=== PATIENT | female | born 2000 | race Caucasian/White ===

== ENCOUNTER 2023-03-31 00:41 | Emergency (ER) | payer MEDICAID ==
[2023-03-31 01:03] VITALS: TEMP 99
[2023-03-31] MEDS ORDERED: PROVENTIL 2.5 MG/3 ML NEB IH ONE ×2 (01:16→01:33)
[2023-03-31] MEDS ORDERED: Pepcid 20 MG VIAL IV ONE ×2 (01:16→01:19)
[2023-03-31] MEDS ORDERED: Sodium Chloride 0.9% 1000 ML 1,000 ML IV STA (01:16)
[2023-03-31] MEDS ORDERED: solu-MEDROL 125 MG, Sterile H2O 10 ml 2 ML IV ONE ×2 (01:16)
[2023-03-31] MEDS ORDERED: BENADRYL 50 MG/ML IV ONE (01:16)
--- NOTE | 2023-03-31 01:16 | ERPHSYRPT ---
- History of Present Illness Time Seen by Provider: 03/31/23 01:05 Source: patient Exam Limitations: no limitations Patient Subjective Stated Complaint: pt states she ate salmon (not the first time having) at approx 2000 and very soon after eating she started itching all o catrina and experienced swelling to face and eyes. at that times she reports it was difficult to breath (no longer complains of this) and she felt wheezy (no longer complains of this). Triage Nursing Assessment: pt ambulated to room 5 indpendently with slow steady gait after standing on scale for weight acquisition. pt is alert and oriented times three, able to speak in complete sentences, able to move all extremities, and with resp even and unlabored. skin warm, pink, dry, and intact with flushed skin on face, neck, and upper torso. several small patches of red with small hives noted to generalized body. lung sounds clear and diminished bilat, swelling to face and eyes noted. no swelling visible to mouth, lips, throat, tongue. states that she has a little bit of a sore throat but denies sob or difficulty with breathing at this time. no cough noted. Physician History: Patient ate salmon and lobster macaroni 5 hours prior to come the emergency room and began having itching all over and swelling to her face. She did have some difficulty breathing and wheezing that have resolved by time she came in. She did take 100 mg of Benadryl which has helped approximately an hour and 45 minutes prior to coming into the emergency department. Patient's grandmother told her that she may have had a mild allergic reaction to salmon in the past. Timing/Duration: hour(s) (5), improved Severity: moderate Modifying Factors: Improves With: medication (Benadryl) Associated Symptoms: shortness of breath, No nausea, No vomiting, No abdominal pain, No heartburn, No diaphoresis, No cough, No chills, No chest pain, No fever, No headaches, No loss of appetite, No malaise, No rash, No syncope, No seizure, No weakness Allergies/Adverse Reactions: No Known Drug Allergies Allergy (Verified 03/31/23 00:46) Home Medications: Drospir/Eth Estra/Levomefol Ca [[id number] 3-0.02-0.451] 1 tab PO DAILY 03/31/23 [History] Hx Tetanus, Diphtheria Vaccination/Date Given: (unknown) Hx Influenza Vaccination/Date Given: No Hx Pneumococcal Vaccination/Date Given: No Immunizations Up to Date: No Travel Risk - International Travel Have you traveled outside of the country in past 3 weeks: No - Coronavirus Screening Are you exhibiting any of the following symptoms?: No Close contact with a COVID-19 positive Pt in past 14-21 Days: No - Vaccine Status Have you recieved a Covid-19 vaccination: Yes Entry Level Account Representative: Unknown - Vaccination Dates Dates if Unknown: unknown - Review of Systems Constitutional: No Fever, No Chills, No Malaise Eyes: No Symptoms, No Eye Pain, No Eye Redness Ears, Nose, & Throat: No Symptoms, Other (itchy throat), No Nose Congestion, No Mouth Swelling, No Throat Pain, No Throat Swelling, No Painful Swallowing Respiratory: Dyspnea (Resolved now), Wheezing (Improved), No Cough Cardiac: No Chest Pain, No Edema, No Syncope Abdominal/Gastrointestinal: No Abdominal Pain, No Nausea, No Vomiting, No Diarrhea Genitourinary Symptoms: No Dysuria, No Hematuria, No Flank Pain Musculoskeletal: No Back Pain, No Neck Pain Skin: No Rash Neurological: No Dizziness, No Focal Weakness, No Sensory Changes Psychological: No Symptoms Endocrine: No Symptoms Hematologic/Lymphatic: No Easy Bleeding, No Easy Bruising All Other Systems: Reviewed and Negative - Past Medical History Pertinent Past Medical History: Yes Neurological History: No Pertinent History ENT History: No Pertinent History Cardiac History: No Pertinent History Respiratory History: No Pertinent History Endocrine Medical History: No Pertinent History Musculoskeletal History: No Pertinent History GI Medical History: No Pertinent History History: No Pertinent History Psycho-Social History: Depression Female Reproductive Disorders: No Pertinent History - Past Surgical History Past Surgical History: Yes Neuro Surgical History: No Pertinent History Cardiac: No Pertinent History Respiratory: No Pertinent History Gastrointestinal: No Pertinent History Genitourinary: No Pertinent History Musculoskeletal: Other Female Surgical History: No Pertinent History Other Surgical History: torn muscle repair - Social History Smoking Status: Former smoker Exposure to second hand smoke: No Drug Use: none Patient Lives Alone: Yes - Female History Hx Last Menstrual Period: 03/10/23 Hx Now: No - Nursing Vital Signs Nursing Vital Signs: Initial Vital Signs Pulse Rate 74 03/31/23 00:46 Respiratory Rate 16 03/31/23 00:46 Blood Pressure 144/86 03/31/23 00:46 O2 Sat by Pulse Oximetry 96 03/31/23 00:46 Pain Scale Pain Intensity 0 - Physical Exam General Appearance: no apparent distress, alert Eye Exam: PERRL/EOMI, eyes nml inspection, No scleral icterus, No pale conjunctivae Ears, Nose, Throat Exam: normal ENT inspection, TMs normal, pharynx normal, moist mucous membranes Neck Exam: normal inspection, non-tender, supple, full range of motion, No meningismus, No Brudzinski, No lymphadenopathy, No subcutaneous emphysema Respiratory Exam: normal breath sounds, lungs clear, No respiratory distress Cardiovascular Exam: regular rate/rhythm, normal heart sounds, normal peripheral pulses Gastrointestinal/Abdomen Exam: soft, normal bowel sounds, No tenderness, No mass, No rebound Back Exam: normal inspection, normal range of motion, No CVA tenderness, No vertebral tenderness Extremity Exam: normal inspection, normal range of motion, pelvis stable Neurologic Exam: alert, oriented x 3, cooperative, board worker II-XII nml as tested, normal mood/affect, sensation nml, No motor deficits Skin Exam: normal color, warm, dry, No rash, No petechiae, No cyanosis Lymphatic Exam: No adenopathy SpO2 Interpretation: normal SpO2: 97 O2 Delivery: Room Air Ordered Tests: Active Orders 24 hr Category Date Time Status Respiratory Therapy Assessment DAILY RT 03/31/23 01:45 Active Medication Summary Discontinued Medications Generic Name Dose Route Start Last Admin Trade Name Madiq PRN Reason Stop Dose Admin Albuterol Sulfate 2.5 mg 03/31/23 01:16 03/31/23 01:40 Albuterol Sulfate 2.5 Mg/3 Ml Neb IH 03/31/23 01:17 2.5 mg STAT ONE Administration Albuterol Sulfate Confirm 03/31/23 01:33 Albuterol Sulfate 2.5 Mg/3 Ml Neb Administered 03/31/23 01:34 Dose 2.5 mg IH .STK-MED ONE Methylprednisolone Sodium 0 mg 03/31/23 01:16 03/31/23 01:23 Succinate 125 mg/ Sterile IV 03/31/23 01:17 125 mg Water 2 ml STAT ONE Administration Diphenhydramine HCl 50 mg 03/31/23 01:16 03/31/23 01:23 Diphenhydramine Hcl 50 Mg/Ml Vial IV 03/31/23 01:17 50 mg STAT ONE Administration Diphenhydramine HCl Confirm 03/31/23 01:19 Diphenhydramine Hcl 50 Mg/Ml Vial Administered 03/31/23 01:20 Dose 50 mg .ROUTE .STK-MED ONE Famotidine 20 mg 03/31/23 01:16 03/31/23 01:23 Famotidine 20 Mg/1 Vial IV 03/31/23 01:17 20 mg STAT ONE Administration Famotidine Confirm 03/31/23 01:19 Famotidine 20 Mg/1 Vial Administered 03/31/23 01:20 Dose 20 mg IV .STK-MED ONE Sodium Chloride 1,000 mls @ 999 mls/hr 03/31/23 01:16 03/31/23 02:25 Sodium Chloride 0.9% 1000 Ml IV 03/31/23 02:16 Infused .Q1H1M STA Infusion Sodium Chloride Confirm 03/31/23 01:19 Sodium Chloride 0.9% 1000 Ml Administered 03/31/23 01:20 Dose 1,000 mls @ ud .ROUTE .STK-MED ONE Methylprednisolone Sodium Succinate Confirm 03/31/23 01:19 Methylprednis Sod Succ 125 Mg/2 Ml Vial Administered 03/31/23 01:20 Dose 125 mg .ROUTE .STK-MED ONE Sterile Water Confirm 03/31/23 01:19 Water For Injection,Sterile 10 Ml Vial Administered 03/31/23 01:20 Dose 10 ml IJ .STK-MED ONE - Progress Progress: improved, re-examined Progress Note: 03/31/23 02:24 Patient feels better and has no signs of any wheezing, urticaria, angioedema with decreased swelling to her face 03/31/23 02:30 Patient's 22-year-old female came in the emergency department due to having symptoms consistent with allergic reaction after eating salmon and lobster and per her history she was told she may have mild allergic reaction to salmon. Patient did take Benadryl for she came in and my evaluation not show any other concerning signs, but due to her symptoms and some minor facial swelling, patient was given dose of IV Solu-Medrol, IV Benadryl and IV Pepcid with a albuterol treatment. Patient symptomatic felt much better after all the therapies with improvement in her swelling to her face and she had no signs of angioedema, urticaria, wheeze, stridor or hemodynamic instability during her monitoring here in the emergency department. Patient will be discharged home prescription for Clarinex to take once daily as needed as well as EpiPen's to have as well as given referral to both primary care and poison information specialist to follow-up for further outpatient monitoring and testing, patient understands avoid any lobsters or salmon until she gets confirmation. Patient stands return back to the nearest emergency room if she has any new swelling or rash or itching, any new angioedema, stridor or wheezing, any new dizziness, any near- syncope or syncopal events, any chest pain or dyspnea or any other concerning signs or symptoms that were not present at today's emergency room visit for immediate reevaluation in the nearest emergency department Counseled pt/family regarding: diagnosis, need for follow-up - Departure Departure Disposition: Home Clinical Impression: Acute allergic reaction Qualifiers: Encounter type: initial encounter Qualified Code(s): T78.40XA - Allergy, unspecified, initial encounter Condition: Good Critical Care Time: No Referrals: DOCTOR,NO FAMILY [Primary Care Provider] - Follow up/PCP as directed KADI CORTEZ NP [NON-STAFF PHY W/O PRIVILEGES] - Follow up with PCP 1 day BRANDON ZHANG MD [NON-STAFF PHY W/O PRIVILEGES] - Follow up with PCP 1 day (Articulation Officer for your reference) Instructions: Food allergy Additional Instructions: Avoid any salmon or lobster until you get further tested. Return back to the nearest emergency department if you have any worsening swelling to your face, new swelling. Tongue or throat, new chest tightness or wheezing, new skin rash anywhere, new diarrhea, vomiting or abdominal pain, new fever or any other concerning signs or symptoms that were not present at today's emergency room visit for immediate reevaluation in the nearest emergency department Forms: Work/School Release Form Prescriptions: Desloratadine [Clarinex] 5 mg PO DAILY PRN PRN #14 tablet PRN Reason: Allergies EPINEPHrine [Epipen 0.3 MG] 0.3 mg IM DAILY PRN PRN #2 units MDD 1 PRN Reason: Allergies
[2023-03-31] MEDS ORDERED: Sterile H2O 10 ml IJ ONE (01:19)
[2023-03-31] MEDS ORDERED: Sodium Chloride 0.9% 1000 ML 1,000 ML ONE (01:19)
[2023-03-31] MEDS ORDERED: solu-MEDROL ONE (01:19)
[2023-03-31] MEDS ORDERED: BENADRYL 50 MG/ML ONE (01:19)
[2023-03-31 02:12] VITALS: BP 123/59; PULSE 86; RESP 20; O2SAT 97
== END 2023-03-31 02:34 | disposition home or self-care (01) ==
LOC: ED 00:41
DX: T78.1XXA Other adverse food reactions, not elsewhere classified, initial encounter (principal); R60.0 Localized edema; L29.9 Pruritus, unspecified; R06.2 Wheezing; R06.02 Shortness of breath
CPT/HCPCS: 36000; 94640; 96360; 96374; 96375; 99284; J1200; J2930; J7609; A9270-GY